=== PATIENT | female | born 1945 | race Caucasian/White ===

== ENCOUNTER 2016-12-22 10:04 | Emergency (ER) | payer MEDICARE ==
[~2016-12-22] VITALS: Ht 152.4 cm; Wt 65.0 kg
[2016-12-22 10:06] VITALS: Ht 152.4 cm; Wt 65.0 kg
--- NOTE | 2016-12-22 11:53 | ERD ---
ER Documentation Chief Complaint Date/Time DATE: 12/22/16 TIME: 11:50 [facility] (JACOB IVY PA-C) HPI Patient is a 71-year-old female who presents to the ED with right hand pain after sustaining a fall 3 days ago. She states that she she tripped as she was walking and fell on her right hand and hit the right side of her head. She denies passing out or losing consciousness. She states that her hand was slightly swollen and bruised however the bruising has decreased. She has not taken any medication for symptoms. She denies any pain above her wrist. She denies headache or dizziness. She denies blurry vision. She denies neck pain or stiffness. She denies abdominal pain, nausea, vomiting or diarrhea. Her only complaint is her hand and wrist. (JACOB IVY PA-C) ROS All systems reviewed and are negative except as per history of present illness. (JACOB IVY PA-C) Medications Home Meds Active Scripts Acetaminophen* (Tylophen*) 500 Mg Capsule, 1 CAP PO Q6H Y for PAIN AND OR ELEVATED TEMP, #20 CAP Prov:JACOB IVY PA-C 12/22/16 PMhx/Soc Medical and Surgical Hx: pt denies Medical Hx, pt denies Surgical Hx Hx Alcohol Use: No Hx Substance Use: No Hx Tobacco Use: No Smoking Status: Never smoker (JACOB IVY PA-C) Physical Exam Vitals Vital Signs Date Time Temp Pulse Resp B/P Pulse Ox O2 Delivery O2 Flow Rate FiO2 12/22/16 13:35 98.0 74 18 154/71 99 Room Air 12/22/16 10:06 98.1 71 18 160/78 99 (KING MCCLENDON MD) Physical Exam GENERAL: Well-developed, well-nourished female. Appears in no acute distress. HEAD: Normocephalic, atraumatic. No hematoma or bruising. No open wounds or lacerations. No step-offs or deformities. EYES: Pupils are equally reactive bilaterally. EOMs grossly intact. No conjunctival erythema. ENT: Moist mucous membranes. No uvula deviation. No kissing tonsils. No exudates. NECK: Supple. No lymphadenopathy or thyromegaly. No meningismus. negative kernig. negative brudinski. No cervical spinal tenderness range of motion intact. LUNG: Clear to auscultation bilaterally. No rhonchi, wheezing, rales or coarse breath sounds. HEART: Regular rate and rhythm. No murmurs, rubs or gallops. Extremities: Equal pulses bilaterally. No peripheral clubbing, cyanosis or edema. No unilateral leg swelling. Tenderness to the medial aspect of her hand. Mild ecchymosis on her fingers. No snuffbox tenderness. Range of motion intact. No numbness or tingling. Radius, ulnar and median nerve intact. No open wounds or lacerations. No step-offs or deformities. No pain above her wrist joint. No pain in her elbow or shoulder. NEUROLOGIC: Alert and oriented. Moving all four extremities. 5/5 strength in all extremities. Normal speech. Steady gait. Cranial nerves II through XII intact. SKIN: Normal color. Warm and dry. No rashes or lesions. Capillary refill < 2 seconds (JACOB IVY PA-C) Procedures/MDM ER COURSE: I kept the patient and/or family informed of laboratory and diagnostic imaging results throughout the emergency room course. IMAGING STUDIES [place] [address] Radiology Main Line: [phone] DIAGNOSTIC IMAGING REPORT Patient: SHAUN TIERNEY : 1945 Age: 71 Sex: F MR #: [id number] DOS: 12/22/16 1138 Ordering MD: JACOB IVY PA-C Location: [facility] Room/Bed: PROCEDURE: XR Right Wrist with Navicular View CLINICAL INDICATION: Status post fall, hand and wrist pain TECHNIQUE: AP, lateral, and oblique views as well as a carpal navicular view were submitted. COMPARISON: None FINDINGS: Osseous structures: There is a fracture through the base of the fifth metacarpal with the distal fragment displaced dorsally by approximately 2 mm. The remaining osseous elements appear intact. Joint spaces: Mild degenerative changes seen about the first metacarpal carpal joint space. Soft tissues: appear unremarkable. IMPRESSION: 1. Fracture through base of the right fifth metacarpal with the distal fragment displaced dorsally by 2 mm. 2. Mild degenerative change seen at the first metacarpal carpal joint space. Physician Trice Date Time Electronically viewed and signed by Eloisa Minor Physician on 12/22/2016 12:25 RH/ CC: JACOB IVY PA-C [place] [address] Radiology Main Line: [phone] DIAGNOSTIC IMAGING REPORT Patient: SHAUN TIERNEY : 1945 Age: 71 Sex: F MR #: [id number] DOS: 12/22/16 1116 Ordering MD: JACOB IVY PA-C Location: [facility] Room/Bed: PROCEDURE: CT Brain without contrast. CLINICAL INDICATION: Trauma; fall , striking head. TECHNIQUE: A CT of the brain was performed on a high-resolution CT scanner utilizing a low dose technique with axial imaging from the skull base through the vertex without IV contrast. Multiplanar reformatted images were made. Images were reviewed on a PACS workstation. The CTDIvol is 44 mGy and the DLP is 720 mGycm. One or more of the following dose reduction techniques were used: - Automated exposure control. - Adjustment of the mA and/or kV according to patient size. Use of iterative reconstruction technique. COMPARISON: No. FINDINGS: The fourth ventricle is normal in size. The third and lateral ventricles are normal in size and configuration. The brain parenchyma is normal. There is an extra-axial CSF fluid collection along the inner table of the right frontal bone measuring about 1 cm in width by 5.7 cm AP by 7.5 x 7.5 cm. The visible portions of the globes and extraocular muscles are normal. The paranasal sinuses are clear. The mastoid air cells and internal auditory canals are normal. The bony calvarium is intact. No acute skull fracture is identified. No acute intracranial hemorrhage is noted. There are vascular calcifications in the cavernous and supracavernous portions of the internal carotid arteries. IMPRESSION: 1. A CSF density extra-axial fluid collection is node along the inner table of the right frontal bone as described. This is most likely result of a chronic subdural hygroma. 2. No acute intracranial hemorrhage or skull fracture is identified. 3. There are vascular calcifications in the cavernous and supracavernous portions of the internal carotid arteries. RPTAT:AAJJ Physician Geovanna Date Time Electronically viewed and signed by Physician Geovanna on 12/22/2016 12:25 JM/ CC: JACOB IVY PA-C [place] [address] Radiology Main Line: [phone] DIAGNOSTIC IMAGING REPORT Patient: SHAUN TIERNEY : 1945 Age: 71 Sex: F MR #: [id number] DOS: 12/22/16 1116 Ordering MD: JACOB IVY PA-C Location: [facility] Room/Bed: PROCEDURE: XR Hand. CLINICAL INDICATION: Pain after a fall. TECHNIQUE: AP oblique and lateral views of the right hand were obtained. COMPARISON: No prior studies are available for comparison. FINDINGS: There is a fracture to the proximal metadiaphysis of the left fifth metacarpal bone. There is soft tissue swelling of the right hand. The other bony elements and joint spaces are intact and anatomically aligned. IMPRESSION: 1. A fracture occurred to the proximal metadiaphysis of the right fifth metacarpal bone with 1/2 bone with the dorsal displacement of the distal fracture fragment. There is surrounding soft tissue swelling. RPTAT:AAJJ Physician Geovanna Date Time Electronically viewed and signed by Physician Geovanna on 12/22/2016 12:16 JM/ CC: JACOB IVY PA-C PROCEDURES Splint Assessment: Neurovascularly intact post splint placement with good fit. MEDICAL DECISION MAKING: This is a 71-year-old female who presents with right hand pain after sustaining a fall 3 days ago. Vital signs were reviewed. Patient is afebrile. Patient is not hypoxic. Patient is not toxic or ill-appearing. Her x-rays read by radiologist shows A fracture occurred to the proximal metadiaphysis of the right fifth metacarpal bone with 1/2 bone with the dorsal displacement of the distal fracture fragment. There is surrounding soft tissue swelling. Her CAT scan is read by radiologist is unremarkable. Patient will be given an ulnar gutter splint and to follow-up with orthopedics in 3-5 days. I do not think any further x-rays were necessary as patient does not have pain above her wrist joint. Low suspicion for dislocation, fracture, septic joint, compartment syndrome, osteomyelitis, cellulitis, avascular necrosis, neurological injury, vascular injury, tendon laceration. Low suspicion for intracranial hemorrhage, meningitis, intracranial mass, concussion, temporal arteritis, stroke, elevated intracranial pressure, seizure. DISCHARGE: At this time, patient is stable for discharge and outpatient management with no new complaints during the ER course. Patient was sent home with copy of imaging studies, splint and Tylenol for pain. Patient will be discharged home with instructions to recheck for new or worsening symptoms such as fever, nausea, weakness, LOC and to follow up with primary care in the next 1-2 days. Patient was advised to return to the ER for any new or worsening symptoms. Plan was discussed and patient and/or family understands and agrees. Home instructions were given. (JACOB IVY PA-C) MD note-agree with detailed history and assessment of mid-level provider. subjective-patient complains of headache and right hand pain after mechanical fall. Objective-patient has tenderness in the right hand fifth metacarpal area. Mild tenderness in the parietal area of the scalp. No neck tenderness or neurologic deficits. x-ray shows right fifth metacarpal fracture CT brain is normal. Right wrist x- ray normal. Assessment-patient has signs and symptoms of right fifth metacarpal fracture without evidence of dislocation, neurologic deficit, ischemia and head injury without signs of fracture, bleeding, neurologic deficit. Plan-patient will be discharged home in a right ulnar gutter splint. Patient neurovascular intact there is a splint with orthopedic follow-up with primary care follow-up with instructions to recheck for new or worsening symptoms. (KING MCCLENDON MD) Departure Diagnosis: Primary Impression: Metacarpal bone fracture Encounter type: initial encounter Metacarpal bone: fifth Fracture type: closed Metacarpal location: unspecified portion of metacarpal Condition: Stable JACOB IVY PA-C Dec 22, 2016 11:53 KING MCCLENDON MD Dec 22, 2016 14:24
--- NOTE | 2016-12-22 12:17 | RADRPT ---
PROCEDURE: XR Hand. CLINICAL INDICATION: Pain after a fall. TECHNIQUE: AP oblique and lateral views of the right hand were obtained. COMPARISON: No prior studies are available for comparison. FINDINGS: There is a fracture to the proximal metadiaphysis of the left fifth metacarpal bone. There is soft tissue swelling of the right hand. The other bony elements and joint spaces are intact and anatomic ally aligned. IMPRESSION: 1. A fracture occurred to the proximal metadiaphysis of the right fifth metacarpal bone with 1/2 bon e with the dorsal displacement of the distal fracture fragment. There is surrounding soft tissue sw elling. RPTAT:AAJJ Physician Geovanna Date Time Electronically viewed and signed by Physician Geovanna on 12/22/2016 12:16 /
--- NOTE | 2016-12-22 12:26 | RADRPT ---
PROCEDURE: XR Right Wrist with Navicular View CLINICAL INDICATION: Status post fall, hand and wrist pain TECHNIQUE: AP, lateral, and oblique views as well as a carpal navicular view were submitted. COMPARISON: None FINDINGS: Osseous structures: There is a fracture through the base of the fifth metacarpal with the distal fra gment displaced dorsally by approximately 2 mm. The remaining osseous elements appear intact. Joint spaces: Mild degenerative changes seen about the first metacarpal carpal joint space. Soft tissues: appear unremarkable. IMPRESSION: 1. Fracture through base of the right fifth metacarpal with the distal fragment displaced dorsally by 2 mm. 2. Mild degenerative change seen at the first metacarpal carpal joint space. Physician Trice Date Time Electronically viewed and signed by Eloisa Minor Physician on 12/22/2016 12:25 /
--- NOTE | 2016-12-22 12:26 | RADRPT ---
PROCEDURE: CT Brain without contrast. CLINICAL INDICATION: Trauma; fall , striking head. TECHNIQUE: A CT of the brain was performed on a high-resolution CT scanner utilizing a low dose te chnique with axial imaging from the skull base through the vertex without IV contrast. Multiplanar reformatted images were made. Images were reviewed on a PACS workstation. The CTDIvol is 44 mGy an d the DLP is 720 mGycm. One or more of the following dose reduction techniques were used: - Automated exposure control. - Adjustment of the mA and/or kV according to patient size. Use of iterative reconstruction technique. COMPARISON: No. FINDINGS: The fourth ventricle is normal in size. The third and lateral ventricles are normal in size and con figuration. The brain parenchyma is normal. There is an extra-axial CSF fluid collection along the inner table of the right frontal bone measuring about 1 cm in width by 5.7 cm AP by 7.5 x 7.5 cm. The visible portions of the globes and extraocular muscles are normal. The paranasal sinuses are cl ear. The mastoid air cells and internal auditory canals are normal. The bony calvarium is intact. No acute skull fracture is identified. No acute intracranial hemorrhage is noted. There are vascula r calcifications in the cavernous and supracavernous portions of the internal carotid arteries. IMPRESSION: 1. A CSF density extra-axial fluid collection is node along the inner table of the right frontal meseret ne as described. This is most likely result of a chronic subdural hygroma. 2. No acute intracranial hemorrhage or skull fracture is identified. 3. There are vascular calcifications in the cavernous and supracavernous portions of the internal ca rotid arteries. RPTAT:AAJJ Physician Geovanna Date Time Electronically viewed and signed by Physician Geovanna on 12/22/2016 12:25 LYUDMILA/
[2016-12-22] MEDS ORDERED: ACET500C5 PO (12:47)
[2016-12-22 13:35] VITALS: BP 154/71; PULSE 74; RESP 18; TEMP 98
== END 2016-12-22 13:35 | disposition home or self-care (01) ==
LOC: FTE 10:04
DX: S62.306A Unspecified fracture of fifth metacarpal bone, right hand, initial encounter for closed fracture (principal); R51 Headache; W01.198A Fall on same level from slipping, tripping and stumbling with subsequent striking against other object, initial encounter; Y92.9 Unspecified place or not applicable
CPT/HCPCS: 70450